=== PATIENT | female | born 1935 | race Caucasian/White ===

== ENCOUNTER 2017-01-10 13:15 | Emergency (ER) | payer MEDICARE, MEDICAID ==
[2017-01-10 13:24] VITALS: BP 147/82
--- NOTE | 2017-01-10 13:50 | ER Document Report ---
ED General - General Chief Complaint: Sore Throat Stated Complaint: COUGH Time Seen by Provider: 01/10/17 13:39 Mode of Arrival: Medic Information source: Patient, Emergency Med Personnel Notes: Patient presents emergency department via EMS from the house for complaints of sore throat and cough for the last few days. She denies fever vomiting diarrhea. She reports she has not been vomiting after cough. She reports shes been coughing up some yellow sputum. She reports her throat hurts because she has been coughing so much. Reports she has been eating and drinking without any problems. TRAVEL OUTSIDE OF THE [place] IN LAST 30 DAYS: No - HPI Onset: Other - a few days Onset/Duration: Persistent Quality of pain: Other - sore Severity: Mild Pain Level: 1 Associated symptoms: Productive cough - Related Data Allergies/Adverse Reactions: No Known Allergies Allergy (Verified 02/06/16 17:30) Past Medical History - General Information source: Patient, Emergency Med Personnel, Outside Facility Records - Social History Smoking Status: Unknown if Ever Smoked Cigarette use (# per day): No Frequency of alcohol use: None Drug Abuse: None Lives with: Penitentiary - [facility] Family History: Reviewed & Not Pertinent Patient has suicidal ideation: No Patient has homicidal ideation: No - Past Medical History Cardiac Medical History: Reports: Hx Hypercholesterolemia, Hx Hypertension Denies: Hx Coronary Artery Disease, Hx Heart Attack Pulmonary Medical History: Denies: Hx Asthma, Hx Bronchitis, Hx COPD, Hx Pneumonia Neurological Medical History: Denies: Hx Cerebrovascular Accident, Hx Seizures Endocrine Medical History: Reports: Hx Diabetes Mellitus Type 2 Musculoskeltal Medical History: Reports Hx Arthritis - Knees Past Surgical History: Reports: Hx Cardiac Catheterization, Hx Cardiac Surgery - pacemaker, Hx Hysterectomy. Denies: Hx Pacemaker - Immunizations Hx Diphtheria, Pertussis, Tetanus Vaccination: Yes Review of Systems - Review of Systems Notes: Review HPI for review of systems., All other systems negative Physical Exam - Vital signs Vitals: Temp Pulse Resp BP Pulse Ox 98.8 F 61 16 147/82 H 97 01/10/17 13:18 01/10/17 13:18 01/10/17 13:18 01/10/17 13:18 01/10/17 13:18 - Notes Notes: PHYSICAL EXAMINATION: GENERAL: Well-appearing and in no acute distress nontoxic looking HEAD: Atraumatic, normocephalic. EYES: Pupils equal round and reactive to light, extraocular movements intact, sclera anicteric, conjunctiva are normal. ENT: TM WNL, hoarse voice, nares patent, oropharynx slight erythema without exudates. Moist mucous membranes. NECK: Normal range of motion, supple without lymphadenopathy LUNGS: CTAB and equal. No wheezes rales or rhonchi. HEART: Regular rate and rhythm + murmur ABDOMEN: Soft, no tenderness. No guarding, no rebound EXTREMITIES: Normal range of motion, no pitting edema. No cyanosis. NEUROLOGICAL: Cranial nerves grossly intact. Normal sensory/motor exams. PSYCH: Normal mood, normal affect. SKIN: Warm, Dry, normal turgor for age - HEENT Head: Normocephalic Eyes: Normal Conjunctiva: Normal Extraocular movements intact: Yes Ears: Normal External canal: Normal Tympanic membrane: Normal Sinus: Normal Nasal: Normal Mouth/Lips: Normal Mucous membranes: Moist Pharynx: Normal, Erythema - No peritonsillar abscess good clear voice no trismus , opens mouth wide. No: Exudate Neck: Normal, Supple. No: Lymphadenopathy Course - Re-evaluation Re-evalutation: 01/10/17 13:50 Patient looks good,nontoxic looking, no fever speaks in clear sentences no shortness of breath denies chest pain, will do strep and chest x-ray. - Vital Signs Vital signs: Temp Pulse Resp BP Pulse Ox 98.9 F 88 16 147/82 H 94 01/10/17 17:23 01/10/17 17:23 01/10/17 17:23 01/10/17 13:18 01/10/17 17:23 Discharge - Discharge Clinical Impression: Sore throat, Cough Condition: Stable Disposition: HOME, SELF-CARE Instructions: Sore Throat (OM) Additional Instructions: *You have been evaluated for a sore throat, cough *The strep test was negative. A throat culture is pending. You will be contacted should you need antibiotics. *Warm salt water gargles and throat lozenges for comfort *Good hand washing *Follow-up with your primary care provider within 3 days *Return to ED for worsening condition change, needs Monitor your blood pressure. Your blood pressure was elevated today. This may be because you were anxious, in pain or because you need medication. It is important to follow up with your primary care provider for full evaluation. Forms: Elevated Blood Pressure Referrals: HUNTER JAMES MD [Primary Care Provider] - Follow up in 3-5 days
--- NOTE | 2017-01-10 15:11 | RADIOLOGY REPORT (SQ) ---
EXAM DESCRIPTION: SOFT TISSUE NECK COMPLETED DATE/TIME: 01/10/2017 2:41 pm REASON FOR STUDY: cough COMPARISON: None. NUMBER OF VIEWS: Two views. TECHNIQUE: AP and lateral radiographic image of the soft tissues of the neck. LIMITATIONS: None. FINDINGS: EPIGLOTTIS: Normal. Contour normal. Aryepiglottic folds normal. PREVERTEBRAL SOFT TISSUES: Normal. No soft tissue swelling. SUBGLOTTIC AREA: Normal. No narrowing. RETROPHARYNGEAL SPACE: Normal. No soft tissue masses. BONY STRUCTURES: No significant findings. Osteoporotic with degenerative disc space changes at C4-5 LUNG APICES: Normal. OTHER: Surgical clips right neck likely post endarterectomy. Left-sided pacemaker. IMPRESSION: No prevertebral soft tissue swelling. No plain film evidence of airway compromise TECHNICAL DOCUMENTATION: JOB ID: [id number] [employer]- All Rights Reserved
--- NOTE | 2017-01-10 15:12 | RADIOLOGY REPORT (SQ) ---
EXAM DESCRIPTION: CHEST PA/LAT COMPLETED DATE/TIME: 01/10/2017 2:41 pm REASON FOR STUDY: cough COMPARISON: Two-view chest 12/10/2013, 11/12/2007 EXAM PARAMETERS: NUMBER OF VIEWS: two views TECHNIQUE: Digital Frontal and Lateral radiographic views of the chest acquired. RADIATION DOSE: NA LIMITATIONS: none FINDINGS: LUNGS AND PLEURA: No opacities, masses or pneumothorax. No pleural effusion. MEDIASTINUM AND HILAR STRUCTURES: No masses or contour abnormalities. HEART AND VASCULAR STRUCTURES: Heart normal size. No evidence for failure. BONES: No acute findings. Bones osteoporotic HARDWARE: Left-sided dual lead pacemaker. Old sternotomy for CABG. OTHER: No other significant finding. IMPRESSION: NO SIGNIFICANT RADIOGRAPHIC FINDING IN THE CHEST. TECHNICAL DOCUMENTATION: JOB ID: [id number] [employer]- All Rights Reserved
== END 2017-01-10 17:26 | disposition home or self-care (01) ==
LOC: ER 13:15
DX: J02.9 Acute pharyngitis, unspecified (principal); R05 Cough; R11.10 Vomiting, unspecified
CPT/HCPCS: 70360; 71020; 87070; 87880; 99283

== ENCOUNTER 2017-06-27 07:42 | Emergency (ER) | payer MEDICARE, MEDICAID ==
--- NOTE | 2017-06-27 08:41 | ER Document Report ---
ED General - General Chief Complaint: High Blood Sugar Stated Complaint: SUGAR CONCERN Time Seen by Provider: 06/27/17 08:11 TRAVEL OUTSIDE OF THE [place] IN LAST 30 DAYS: No - HPI Patient complains to provider of: High blood sugar Notes: Patient is coming in from local nursing facility at their notes blood sugar was elevated today. Patient is diabetic on insulin. No insulin was given at the intermediate facility. Much of the HPI is obtained from EMS and intermediate reports. Upon my evaluation patient sleeping easily arousable slightly confused however very delightful to see me. Patient denies any complaints. - Related Data Allergies/Adverse Reactions: No Known Allergies Allergy (Verified 02/06/16 17:30) Past Medical History - Social History Smoking Status: Unknown if Ever Smoked Family History: Reviewed & Not Pertinent Patient has suicidal ideation: No Patient has homicidal ideation: No - Past Medical History Cardiac Medical History: Reports: Hx Hypercholesterolemia, Hx Hypertension Denies: Hx Coronary Artery Disease, Hx Heart Attack Pulmonary Medical History: Denies: Hx Asthma, Hx Bronchitis, Hx COPD, Hx Pneumonia Neurological Medical History: Denies: Hx Cerebrovascular Accident, Hx Seizures Endocrine Medical History: Reports: Hx Diabetes Mellitus Type 2 Renal/ Medical History: Denies: Hx Peritoneal Dialysis Musculoskeltal Medical History: Reports Hx Arthritis - Knees Past Surgical History: Reports: Hx Cardiac Catheterization, Hx Cardiac Surgery - pacemaker, Hx Hysterectomy. Denies: Hx Pacemaker - Immunizations Hx Diphtheria, Pertussis, Tetanus Vaccination: Yes Review of Systems - Review of Systems Notes: Dementia -: Yes ROS unobtainable due to patient's medical condition Physical Exam - Vital signs Vitals: Pulse Ox 100 06/27/17 07:47 Interpretation: Normal - General General appearance: Appears well, Alert - HEENT Head: Normocephalic, Atraumatic Eyes: Normal Pupils: PERRL - Respiratory Respiratory status: No respiratory distress Chest status: Nontender Breath sounds: Normal Chest palpation: Normal - Cardiovascular Rhythm: Regular Heart sounds: Normal auscultation Murmur: No - Abdominal Inspection: Normal Distension: No distension Bowel sounds: Normal Tenderness: Nontender Organomegaly: No organomegaly - Back Back: Normal, Nontender - Extremities General upper extremity: Normal inspection, Nontender, Normal color, Normal ROM , Normal temperature General lower extremity: Normal inspection, Nontender, Normal color, Normal ROM , Normal temperature, Normal weight bearing. No: Mejia's sign - Neurological Neuro grossly intact: Yes Cognition: Confused Sophie Coma Scale Eye Opening: Spontaneous Sophie Coma Scale Verbal: Confused Cleveland Coma Scale Motor: Obeys Commands Cleveland Coma Scale Total: 14 - Psychological Associated symptoms: Normal affect, Normal mood, Confused - Skin Skin Temperature: Warm Skin Moisture: Dry Skin Color: Normal Course - Re-evaluation Re-evalutation: 06/27/17 08:37 We will check basic metabolic panel look for signs of acidosis. If negative patient will be discharged back to intermediate. More likely elevated blood sugars due to lack of insulin. 06/27/17 09:30 Gap patient will be given her morning dose of insulin and will be discharged back to intermediate. - Vital Signs Vital signs: Temp Pulse Resp BP Pulse Ox 97.9 F 60 16 147/41 H 96 06/27/17 08:14 06/27/17 08:14 06/27/17 09:00 06/27/17 09:01 06/27/17 09:00 - Laboratory Result Diagrams: 06/27/17 08:05 Laboratory results interpreted by me: 06/27/17 06/27/17 07:53 08:05 Potassium 5.2 H Carbon Dioxide 20 L BUN 34 H Creatinine 1.70 H Est GFR ( Amer) 35 L Est GFR (Non-Af Amer) 29 L Glucose 358 H POC Glucose 380 H Discharge - Discharge Clinical Impression: Hyperglycemia Additional Instructions: Patient was evaluated for hyperglycemia. Patient was given her morning dose of insulin. Laboratory studies do not show any signs significant acidosis or significant iron gap. Please have the patient follow-up with her primary care physician for further evaluation of her diabetic control. Referrals: HUNTER JAMES MD [Primary Care Provider] - Follow up as needed
[2017-06-27 08:43] LABS: ANION GAP 15 (5-19); BLOOD UREA NITROGEN 34 mg/dL (7-20); CALCIUM 9.5 mg/dL (8.4-10.2); CARBON DIOXIDE 20 mmol/L (22-30); CHLORIDE 105 mmol/L (98-107); GLUCOSE 358 mg/dL (75-110); POTASSIUM 5.2 mmol/L (3.6-5.0)
[2017-06-27] MEDS ORDERED: INSULIN GLARGINE,HUM.REC.ANLOG 1,000 UNIT/10 ML UNIT SUBCUT ONE (09:30)
[2017-06-27 12:02] VITALS: BP 165/44
== END 2017-06-27 12:05 ==
LOC: ER 07:42
DX: E11.65 Type 2 diabetes mellitus with hyperglycemia (principal); Z79.4 Long term (current) use of insulin
CPT/HCPCS: 99285; 36415; 82962; 80048; A9270; J1815

== ENCOUNTER 2017-06-28 09:00 | Emergency (ER) | payer MEDICARE, MEDICAID ==
--- NOTE | 2017-06-28 09:13 | ER Document Report ---
ED General - General Stated Complaint: ALTERED MENTAL STATUS Time Seen by Provider: 06/28/17 09:07 TRAVEL OUTSIDE OF THE [place] IN LAST 30 DAYS: No - HPI Patient complains to provider of: Medical evaluation Notes: Patient is a resident of a local assisted living facility was seen yesterday by myself for elevated blood sugars as that she did not receive her morning dose of Lantus. Patient lab work was performed showing hyperglycemia patient was given her dose of Lantus able to have a meal and was discharged back to the snf. Patient is now presenting today for possible complaint of altered mental status. Again most of the history is from EMS. EMS states that there is concern is that the patient was unable to drink from a cup this morning however was able to have her breakfast. Patient remembers the EMS crew that picked her up yesterday. Patient also remembers myself. Patient at this time expresses no complaints denies any fevers chills nausea vomiting diarrhea. Patient is resting comfortably. No history of fever was recorded at snf. Patient apparently has received all of her medications today. - Related Data Allergies/Adverse Reactions: No Known Allergies Allergy (Verified 06/28/17 09:50) Home Medications: Current Home Medications Alendronate Sodium [Fosamax] 70 mg PO Q7D 06/28/17 [History] Diclofenac Sodium [Voltaren] 3 gm TP TID 06/28/17 [History] Escitalopram Oxalate [Lexapro 10 mg Tablet] 10 mg PO DAILY 06/28/17 [History] Metoprolol Succinate 25 mg PO DAILY 06/28/17 [History] Sodium Polystyrene Sulfon/Sorb [Kionex 15 gm/60 ml Suspension] 15 gm PO Q7D [History] Tolterodine Tartrate [Tolterodine Tartrate ER] 4 mg PO DAILY 06/28/17 [History] Past Medical History - Social History Smoking Status: Unknown if Ever Smoked Family History: Reviewed & Not Pertinent - Past Medical History Cardiac Medical History: Reports: Hx Hypercholesterolemia, Hx Hypertension Denies: Hx Coronary Artery Disease, Hx Heart Attack Pulmonary Medical History: Denies: Hx Asthma, Hx Bronchitis, Hx COPD, Hx Pneumonia Neurological Medical History: Denies: Hx Cerebrovascular Accident, Hx Seizures Endocrine Medical History: Reports: Hx Diabetes Mellitus Type 2 Renal/ Medical History: Denies: Hx Peritoneal Dialysis Musculoskeltal Medical History: Reports Hx Arthritis - Knees Past Surgical History: Reports: Hx Cardiac Catheterization, Hx Cardiac Surgery - pacemaker, Hx Hysterectomy. Denies: Hx Pacemaker - Immunizations Hx Diphtheria, Pertussis, Tetanus Vaccination: Yes Review of Systems - Review of Systems Constitutional: No symptoms reported EENT: No symptoms reported Cardiovascular: No symptoms reported Respiratory: No symptoms reported Gastrointestinal: No symptoms reported Genitourinary: No symptoms reported Female Genitourinary: No symptoms reported Musculoskeletal: No symptoms reported Skin: No symptoms reported Hematologic/Lymphatic: No symptoms reported Neurological/Psychological: No symptoms reported Physical Exam - Vital signs Vitals: Temp Pulse Resp BP Pulse Ox 97.9 F 67 19 135/91 H 99 06/28/17 09:00 06/28/17 09:00 06/28/17 09:00 06/28/17 09:00 06/28/17 09:00 Interpretation: Normal - General General appearance: Appears well, Alert - HEENT Head: Normocephalic, Atraumatic Eyes: Normal Pupils: PERRL - Respiratory Respiratory status: No respiratory distress Chest status: Nontender Breath sounds: Normal Chest palpation: Normal - Cardiovascular Rhythm: Regular Heart sounds: Normal auscultation Murmur: No - Abdominal Inspection: Normal Distension: No distension Bowel sounds: Normal Tenderness: Nontender Organomegaly: No organomegaly - Genitourinary Notes: Patient with redness and swelling of the left labia consistent with a Bartholin gland abscess. Surrounding cellulitis no signs of Patrice's gangrene or deep infection. - Back Back: Normal, Nontender - Extremities General upper extremity: Normal inspection, Nontender, Normal color, Normal ROM , Normal temperature General lower extremity: Normal inspection, Nontender, Normal color, Normal ROM , Normal temperature, Normal weight bearing. No: Mejia's sign - Neurological Neuro grossly intact: Yes Cognition: Normal Orientation: AAOx4 Lester Coma Scale Eye Opening: Spontaneous Sophie Coma Scale Verbal: Oriented Lester Coma Scale Motor: Obeys Commands Sophie Coma Scale Total: 15 Speech: Normal Motor strength normal: LUE, RUE, LLE, RLE Sensory: Normal - Psychological Associated symptoms: Normal affect, Normal mood - Skin Skin Temperature: Warm Skin Moisture: Dry Skin Color: Normal Course - Re-evaluation Re-evalutation: 06/28/17 09:12 EMS states that the certified nursing attendant is concerned that the patient is septic and otherwise seemed displeased with the treatment of the ER yesterday. Therefore we will investigate the patient further. On initial evaluation no signs of sepsis or critical pathology is suspected 06/28/17 12:16 On evaluation patient has of Bartholin abscess. This was I&D. Patient was given a oral dose of Keflex and will decide to change my mind and give the patient a dose of IV clindamycin otherwise laboratory studies show slightly elevated optic acid 2.5 with a bicarb of 18. Otherwise patient's abdomen soft nontender lungs are clear chest x-rays not show any signs of infection patient only has the abscess was a little bit of surrounding cellulitis no signs of Patrice's gangrene. I&D was successful. Patient does not look to be altered at this time. Patient will be transferred back to her place of residence. Able tolerate a meal here in the ER. Think the lactic acid and low bicarb slight dehydration and possible derangement due to renal failure - Vital Signs Vital signs: Temp Pulse Resp BP Pulse Ox 98 F 67 17 157/48 H 96 06/28/17 12:44 06/28/17 09:00 06/28/17 13:04 06/28/17 13:04 06/28/17 13:04 - Laboratory Result Diagrams: 06/28/17 09:20 06/28/17 09:20 Laboratory results interpreted by me: 06/28/17 06/28/17 06/28/17 09:20 09:20 09:20 WBC 11.4 H RBC 3.44 L Hgb 10.6 L Hct 30.9 L VBG pH VBG pCO2 Carbon Dioxide 18 L BUN 31 H Creatinine 1.65 H Est GFR ( Amer) 36 L Est GFR (Non-Af Amer) 30 L Glucose 184 H Lactic Acid 2.5 H Urine Protein Urine Glucose (UA) 06/28/17 06/28/17 09:20 09:34 WBC RBC Hgb Hct VBG pH 7.50 H VBG pCO2 28.7 L Carbon Dioxide BUN Creatinine Est GFR ( Amer) Est GFR (Non-Af Amer) Glucose Lactic Acid Urine Protein 100 H Urine Glucose (UA) 50 H Procedures - Incision and Drainage Left Labia Type: Simple Anesthetic type: 1% Lidocaine mL's of anesthetic: 2 Blade size: 11 I&D procedure: Betadine prep applied, Iodoform packing placed Incision Method: Incision made by scalpel Amount/type of drainage: 3 cc of pus Discharge - Discharge Clinical Impression: Bartholin's gland abscess Condition: Good Disposition: HOME, SELF-CARE Instructions: Clindamycin ([facility]), Post Incision and Drainage Additional Instructions: There is no signs of severe sepsis on patient's workup today. Patient does have a bartholin gland abscess which was I&D. Patient will be put on clindamycin. Patient was able to tolerate a meal here in the ER. However recommend patient follow-up with her MANAGER CRITICAL CARE or PCP for further evaluation of the abscess and approximately 24 hours. A small amount of packing was placed in the wound which can be removed in 24 hours suggest dressing changes every 24 hours at least. Please keep the wound clean and dry. Prescriptions: Clindamycin HCl [Cleocin 150 mg Capsule] 150 mg PO Q6 #40 capsule Referrals: HUNTER JAMES MD [Primary Care Provider] - Follow up in 3-5 days
--- NOTE | 2017-06-28 09:18 | EKG REPORT ---
SEVERITY:- ABNORMAL ECG - SINUS RHYTHM CAN NOT R/O A FIB, REC REPEAT EKG NONSPECIFIC INTRAVENTRICULAR CONDUCTION DELAY NONSPECIFIC ST DEPRESSION, ANTERIOR LEADS : Confirmed by: Jacob Up 28-Jun-2017 09:18:15
[2017-06-28] MEDS ORDERED: NORMAL SALINE 1000 ML 1,000 ML IV ONE (09:22)
[2017-06-28] MEDS ORDERED: CEPHALEXIN 500 MG CAPSULE PO ONE (09:34)
[2017-06-28 09:46] LABS: VENOUS BLOOD BASE EXCESS 0.2 mmol/L; VENOUS BLOOD HCO3 21.9 mmol/L (20-32); VENOUS BLOOD PCO2 28.7 mmHg (35-63); VENOUS BLOOD PH 7.5 (7.30-7.42)
[2017-06-28 09:49] LABS: ABSOLUTE BASOPHILS # (AUTO) 0.1 10^3/uL (0.0-0.2); ABSOLUTE EOSINOPHILS # (AUTO) 0.2 10^3/uL (0.0-0.6); ABSOLUTE LYMPHOCYTES (AUTO) 2.1 10^3/uL (0.5-4.7); ABSOLUTE MONOCYTES (AUTO) 0.9 10^3/uL (0.1-1.4); ABSOLUTE NEUT (AUTO) 8.2 10^3/uL (1.7-8.2); BASOPHILS % (AUTO) 0.5 % (0-2); EOSINOPHILS % (AUTO) 1.6 % (0-6); HEMATOCRIT 30.9 % (36.0-47.0); HEMOGLOBIN 10.6 g/dL (12.0-15.5); HGB HCT DIFFERENCE 0.9; LYMPHOCYTES % (AUTO) 18.2 % (13-45); MEAN CORPUSCULAR HEMOGLOBIN 30.7 pg (27.0-33.4); MEAN CORPUSCULAR HGB CONC 34.1 g/dL (32.0-36.0); MEAN CORPUSCULAR VOLUME 90 fl (80-97); MONOCYTES % (AUTO) 7.5 % (3-13); RED BLOOD COUNT 3.44 10^6/uL (3.72-5.28); RED CELL DISTRIBUTION WIDTH 12.9 % (11.5-14.0); SEGMENTED NEUTROPHILS % (AUTO) 72.2 % (42-78); WHITE BLOOD COUNT 11.4 10^3/uL (4.0-10.5)
[2017-06-28 09:52] LABS: PROTHROMBIN TIME 13.9 SEC (11.4-15.4)
[2017-06-28 10:02] LABS: ALANINE AMINOTRANSFERASE 27 U/L (9-52); ALBUMIN 3.9 g/dL (3.5-5.0); ALKALINE PHOSPHATASE 73 U/L (38-126); ANION GAP 17 (5-19); ASPARTATE AMINO TRANSFERASE 16 U/L (14-36); BILIRUBIN,DIRECT 0.4 mg/dL (0.0-0.4); BILIRUBIN,TOTAL 0.7 mg/dL (0.2-1.3); BLOOD UREA NITROGEN 31 mg/dL (7-20); CALCIUM 9.4 mg/dL (8.4-10.2); CARBON DIOXIDE 18 mmol/L (22-30); CHLORIDE 107 mmol/L (98-107); CREATININE RESULT 1.65 mg/dL (0.52-1.25); GLUCOSE 184 mg/dL (75-110); POTASSIUM 4.7 mmol/L (3.6-5.0); TOTAL PROTEIN 6.7 g/dL (6.3-8.2)
--- NOTE | 2017-06-28 10:05 | RADIOLOGY REPORT (SQ) ---
EXAM DESCRIPTION: CHEST PA/LAT COMPLETED DATE/TIME: 06/28/2017 9:57 am REASON FOR STUDY: ams? COMPARISON: 01/10/2017. EXAM PARAMETERS: NUMBER OF VIEWS: two views TECHNIQUE: Digital Frontal and Lateral radiographic views of the chest acquired. RADIATION DOSE: NA LIMITATIONS: none FINDINGS: LUNGS AND PLEURA: No opacities, masses or pneumothorax. No pleural effusion. MEDIASTINUM AND HILAR STRUCTURES: No masses or contour abnormalities. HEART AND VASCULAR STRUCTURES: Heart normal size. No evidence for failure. BONES: No acute findings. HARDWARE: Sternotomy wires. Pacemaker. OTHER: No other significant finding. IMPRESSION: NO SIGNIFICANT RADIOGRAPHIC FINDING IN THE CHEST. TECHNICAL DOCUMENTATION: JOB ID: [id number] [employer]- All Rights Reserved
[2017-06-28] MEDS ORDERED: NORMAL SALINE 500 ML IV ONE (10:07)
[2017-06-28] MEDS ORDERED: LIDOCAINE 4%/TETRACAINE 0.5%/EPI 0.18% 5 ML TOPICAL SOLN TOP ONE (10:43)
[2017-06-28 11:09] LABS: APPEARANCE,URINE CLEAR; BILIRUBIN,URINE NEGATIVE (NEGATIVE); GLUCOSE, URINE 50 mg/dL (NEGATIVE); KETONES,URINE NEGATIVE (NEGATIVE); LEUKOCYTE ESTERASE,URINE NEGATIVE (NEGATIVE); NITRITE,URINE NEGATIVE (NEGATIVE); PROTEIN,URINE 100 mg/dL (NEGATIVE); URINE SPECIFIC GRAVITY 1.015; UROBILINOGEN,URINE NEGATIVE mg/dL (<2.0)
[2017-06-28] MEDS ORDERED: CLINDAMYCIN 600 MG/D5W RTU 600 MG/50 ML RTUPB IV ONE (12:15)
[2017-06-28 13:32] VITALS: BP 157/48
== END 2017-06-28 13:35 | disposition home or self-care (01) ==
LOC: ER 09:00
PROC: 0U9L0ZZ Drainage of Vestibular Gland, Open Approach (ICD-10-PCS; principal; 2017-06-28)
DX: N75.1 Abscess of Bartholin's gland (principal); R41.82 Altered mental status, unspecified; E11.65 Type 2 diabetes mellitus with hyperglycemia; Z79.4 Long term (current) use of insulin; Z79.899 Other long term (current) drug therapy
CPT/HCPCS: 93005; 99285; 51701; 96365; 36415; 87040; 87086; 82962; 85025; 85610; 80053; 81001; 84484; 82803; 83605; 71020; 93010; 56420; A9270; J7030; J7040; J3490

== ENCOUNTER 2017-07-12 14:53 | Emergency (ER) | payer MEDICARE, MEDICAID ==
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
[2017-07-12 16:39] LABS: ABSOLUTE BASOPHILS # (AUTO) 0.1 10^3/uL (0.0-0.2); ABSOLUTE EOSINOPHILS # (AUTO) 0.3 10^3/uL (0.0-0.6); ABSOLUTE MONOCYTES (AUTO) 0.5 10^3/uL (0.1-1.4); ABSOLUTE NEUT (AUTO) 4.8 10^3/uL (1.7-8.2); BASOPHILS % (AUTO) 0.7 % (0-2); EOSINOPHILS % (AUTO) 3.3 % (0-6); HEMATOCRIT 31.1 % (36.0-47.0); HEMOGLOBIN 10.5 g/dL (12.0-15.5); HGB HCT DIFFERENCE 0.4; LYMPHOCYTES % (AUTO) 25.6 % (13-45); MEAN CORPUSCULAR HEMOGLOBIN 31.5 pg (27.0-33.4); MEAN CORPUSCULAR HGB CONC 33.8 g/dL (32.0-36.0); MEAN CORPUSCULAR VOLUME 93 fl (80-97); RED BLOOD COUNT 3.34 10^6/uL (3.72-5.28); RED CELL DISTRIBUTION WIDTH 12.7 % (11.5-14.0); SEGMENTED NEUTROPHILS % (AUTO) 63.4 % (42-78); WHITE BLOOD COUNT 7.6 10^3/uL (4.0-10.5)
[2017-07-12 16:44] LABS: ANION GAP 12 (5-19); BLOOD UREA NITROGEN 37 mg/dL (7-20); CALCIUM 9.4 mg/dL (8.4-10.2); CARBON DIOXIDE 23 mmol/L (22-30); CHLORIDE 105 mmol/L (98-107); CREATININE RESULT 1.86 mg/dL (0.52-1.25); GLUCOSE 297 mg/dL (75-110); POTASSIUM 5.6 mmol/L (3.6-5.0); SODIUM 139.5 mmol/L (137-145)
[2017-07-12 16:49] LABS: APPEARANCE,URINE SLIGHTLY-CLOUDY; BILIRUBIN,URINE NEGATIVE (NEGATIVE); GLUCOSE, URINE >=500 mg/dL (NEGATIVE); KETONES,URINE NEGATIVE (NEGATIVE); LEUKOCYTE ESTERASE,URINE SMALL (NEGATIVE); NITRITE,URINE NEGATIVE (NEGATIVE); PROTEIN,URINE 30 mg/dL (NEGATIVE); URINE SPECIFIC GRAVITY 1.012; UROBILINOGEN,URINE NEGATIVE mg/dL (<2.0)
[2017-07-12 16:59] LABS: WBC,URINE 0-1 /HPF
[2017-07-12] MEDS ORDERED: NORMAL SALINE 500 ML IV ONE (17:18)
[2017-07-12] MEDS ORDERED: SODIUM POLYSTYRENE SULFONATE 15 GM/60 ML PO ONE (18:51)
--- NOTE | 2017-07-12 19:05 | EKG REPORT ---
SEVERITY:- ABNORMAL ECG - ATRIAL-VENTRICULAR DUAL-PACED COMPLEXES : Confirmed by: Flavio Carpenter MD 12-Jul-2017 19:03:49
[2017-07-12 22:15] VITALS: BP 146/79
== END 2017-07-12 22:25 ==
LOC: ER 14:53
DX: E87.5 Hyperkalemia (principal); E86.0 Dehydration; E11.9 Type 2 diabetes mellitus without complications
CPT/HCPCS: 93005; 99285; 96360; 96361; 36415; 87086; 82962; 85025; 80048; 81001; 93010; J7040

== ENCOUNTER 2017-07-18 11:41 | Emergency (ER) | payer MEDICARE, MEDICAID ==
[2017-07-18 12:53] LABS: ABSOLUTE EOSINOPHILS # (AUTO) 0.2 10^3/uL (0.0-0.6); ABSOLUTE LYMPHOCYTES (AUTO) 1.4 10^3/uL (0.5-4.7); ABSOLUTE MONOCYTES (AUTO) 0.5 10^3/uL (0.1-1.4); BASOPHILS % (AUTO) 0.6 % (0-2); EOSINOPHILS % (AUTO) 2.7 % (0-6); HEMATOCRIT 32.9 % (36.0-47.0); HEMOGLOBIN 11.2 g/dL (12.0-15.5); HGB HCT DIFFERENCE 0.7; LYMPHOCYTES % (AUTO) 19.4 % (13-45); MEAN CORPUSCULAR HEMOGLOBIN 31.9 pg (27.0-33.4); MEAN CORPUSCULAR VOLUME 94 fl (80-97); MONOCYTES % (AUTO) 7.3 % (3-13); RED BLOOD COUNT 3.51 10^6/uL (3.72-5.28); RED CELL DISTRIBUTION WIDTH 12.9 % (11.5-14.0); WHITE BLOOD COUNT 7.1 10^3/uL (4.0-10.5)
[2017-07-18 12:59] LABS: ALANINE AMINOTRANSFERASE 33 U/L (9-52); ALKALINE PHOSPHATASE 61 U/L (38-126); ANION GAP 12 (5-19); ASPARTATE AMINO TRANSFERASE 20 U/L (14-36); BILIRUBIN,DIRECT 0.4 mg/dL (0.0-0.4); BILIRUBIN,TOTAL 0.5 mg/dL (0.2-1.3); BLOOD UREA NITROGEN 32 mg/dL (7-20); CALCIUM 9.4 mg/dL (8.4-10.2); CARBON DIOXIDE 22 mmol/L (22-30); CHLORIDE 103 mmol/L (98-107); CREATININE RESULT 1.71 mg/dL (0.52-1.25); POTASSIUM 5.3 mmol/L (3.6-5.0); SODIUM 136.7 mmol/L (137-145); TOTAL PROTEIN 7.3 g/dL (6.3-8.2)
[2017-07-18 13:08] LABS: GLUCOSE 445 mg/dL (75-110)
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
--- NOTE | 2017-07-18 13:34 | RADIOLOGY REPORT (SQ) ---
EXAM DESCRIPTION: CT CERVICAL SPINE WITHOUT COMPLETED DATE/TIME: 07/18/2017 1:24 pm REASON FOR STUDY: Fall and hit head, minor neck pain COMPARISON: 12/10/2013. TECHNIQUE: Axial images acquired through the cervical spine without intravenous contrast. Images re viewed with lung, soft tissue and bone windows. Reconstructed coronal and sagittal MPR images review ed. Images stored on PACS. All CT scanners at this facility use dose modulation, iterative reconstruction, and/or weight based d osing when appropriate to reduce radiation dose to as low as reasonably achievable (ALARA). [facility]: Dose Right [facility]: CareDose [facility]: Dose Right [facility]: Teradose 4D [facility]: [employer] RADIATION DOSE: mGy. LIMITATIONS: None. FINDINGS: ALIGNMENT: Anatomic. MINERALIZATION: Normal. VERTEBRAL BODIES: No fractures or dislocation. DISCS: Multilevel disc space narrowing with osteophytes. FACETS, LATERAL MASSES, POSTERIOR ELEMENTS: Facet arthropathy. No fractures. No dislocation. No ac amanda findings. HARDWARE: None in the spine. VISUALIZED RIBS: No fractures. LUNG APICES AND SOFT TISSUES: No significant or acute findings. OTHER: No other significant finding. IMPRESSION: CHRONIC DEGENERATIVE CHANGES. NO ACUTE FINDINGS. TECHNICAL DOCUMENTATION: JOB ID: [id number] Quality ID # [id number]: Final reports with documentation of one or more dose reduction techniques (e.g., Au tomated exposure control, adjustment of the mA and/or kV according to patient size, use of iterative reconstruction technique) 2010 [email or web address]- All Rights Reserved
--- NOTE | 2017-07-18 14:06 | RADIOLOGY REPORT (SQ) ---
EXAM DESCRIPTION: CHEST PA/LAT COMPLETED DATE/TIME: 07/18/2017 1:31 pm REASON FOR STUDY: Fall with pain in the left anterior chest area COMPARISON: 06/28/2017. EXAM PARAMETERS: NUMBER OF VIEWS: two views TECHNIQUE: Digital Frontal and Lateral radiographic views of the chest acquired. RADIATION DOSE: NA LIMITATIONS: none FINDINGS: LUNGS AND PLEURA: No opacities, masses or pneumothorax. No pleural effusion. MEDIASTINUM AND HILAR STRUCTURES: No masses or contour abnormalities. HEART AND VASCULAR STRUCTURES: Heart normal size. No evidence for failure. BONES: No acute findings. HARDWARE: Sternotomy wires and pacemaker. OTHER: No other significant finding. IMPRESSION: NO SIGNIFICANT RADIOGRAPHIC FINDING IN THE CHEST. TECHNICAL DOCUMENTATION: JOB ID: [id number] [employer]- All Rights Reserved
[2017-07-18 14:55] LABS: APPEARANCE,URINE SLIGHTLY-CLOUDY; BILIRUBIN,URINE NEGATIVE (NEGATIVE); GLUCOSE, URINE >=500 mg/dL (NEGATIVE); KETONES,URINE NEGATIVE (NEGATIVE); LEUKOCYTE ESTERASE,URINE NEGATIVE (NEGATIVE); NITRITE,URINE NEGATIVE (NEGATIVE); PROTEIN,URINE 30 mg/dL (NEGATIVE); URINE SPECIFIC GRAVITY 1.015; UROBILINOGEN,URINE NEGATIVE mg/dL (<2.0)
[2017-07-18] MEDS ORDERED: INSULIN REG, HUMAN 100 UNIT/ML 3 ML VIAL (PYX) SUBCUT ONE (15:32)
--- NOTE | 2017-07-18 15:36 | ER Document Report ---
ED Fall - General Chief Complaint: Fall Stated Complaint: FALL,HIGH BLOOD SUGAR Time Seen by Provider: 07/18/17 12:26 Notes: Patient is a resident at [facility]. She reportedly fell. Patient says that she lost her footing and slipped. Says that she hit the back of her head, although she says it does not hurt at this time. No report of any loss of consciousness and no report of any mental status or neurological changes. Patient denies any neck pain. Moves all 4 extremities without difficulty and does not appear to have any neurologic deficits. Patient points to the left lower anterior ribs between the left breast and sternum as where she does have some pain, although it does not seem to hurt for me to press on that entire area. Denies any abdominal pain. Denies shortness of breath. Denies any extremity pains, in particular neither hip is painful. TRAVEL OUTSIDE OF THE [place] IN LAST 30 DAYS: No - Related data Allergies/Adverse Reactions: No Known Allergies Allergy (Verified 07/18/17 12:30) Home Medications: Current Home Medications Citalopram Hydrobromide [Citalopram HBr] 20 mg PO DAILY 07/18/17 [History] Lorazepam 1 mg PO BID 07/18/17 [History] Past Medical History - Social History Smoking Status: Never Smoker Chew tobacco use (# tins/day): No Drug Abuse: None Family History: Reviewed & Not Pertinent Patient has suicidal ideation: No Patient has homicidal ideation: No - Past Medical History Cardiac Medical History: Reports: Hx Coronary Artery Disease, Hx Hypercholesterolemia, Hx Hypertension, Other - Patient has a pacemaker in the left upper chest Endocrine Medical History: Reports: Hx Diabetes Mellitus Type 1 - On Lantus, not sure if she got her dose this morning., Hx Diabetes Mellitus Type 2 Musculoskeltal Medical History: Reports Hx Arthritis - Knees Psychiatric Medical History: Reports: Hx Dementia Past Surgical History: Reports: Hx Cardiac Catheterization, Hx Cardiac Surgery - pacemaker, Hx Hysterectomy, Hx Pacemaker - Immunizations Hx Diphtheria, Pertussis, Tetanus Vaccination: Yes Review of Systems - Review of Systems Notes: REVIEW OF SYSTEMS: CONSTITUTIONAL : Denies fever. EENT: Denies eye, ear, nose or mouth or throat pain or other symptoms. CARDIOVASCULAR: See HPI. RESPIRATORY: Denies cough, chest congestion, or shortness of breath. GASTROINTESTINAL: Denies abdominal pain or nausea, vomiting, or diarrhea. GENITOURINARY: Denies difficulty or painful urinating, urinary frequency, blood in urine. MUSCULOSKELETAL: Denies back or neck pain. Denies joint pain or swelling. SKIN: Denies rash or skin lesions. NEUROLOGICAL: Denies LOC or altered mental status. Denies headache. Denies sensory loss or motor deficits. ALL OTHER SYSTEMS REVIEWED AND NEGATIVE. Physical Exam - Vital signs Vitals: Temp Pulse Resp BP Pulse Ox 98.5 F 65 18 162/44 H 99 07/18/17 11:46 07/18/17 11:46 07/18/17 11:46 07/18/17 11:46 07/18/17 11:46 Interpretation: Normal, Hypertensive - Mild - Notes Notes: PHYSICAL EXAMINATION: GENERAL: Well-appearing, in no acute distress. HEAD: Atraumatic, normocephalic. No cranial hematomas noted. No tender spots on the scalp either. EYES: Pupils equal round and reactive to light, extraocular movements intact. ENT: oropharynx clear without exudates. Moist mucous membranes. 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 Family came to visit patient and confirm that it has been there for decades. NECK: Normal range of motion, supple. LUNGS: Breath sounds clear and equal bilaterally. Patient has tenderness where the lower left anterior ribs attached to the sternum. However, no subcutaneous air felt. No tenderness in the left upper quadrant of the abdomen. Pacemaker upper left anterior chest. HEART: Regular rate and rhythm without murmurs. ABDOMEN: Soft, nontender. No guarding or rebound. No tenderness in the left upper quadrant, over the spleen. BACK: No tenderness throughout entire back. EXTREMITIES: Normal range of motion without pain. Both legs have full range of motion at the hip joints and with no pain present. NEUROLOGICAL: Normal speech. Normal sensory, motor, and reflex exams. Awake, alert. PSYCH: Normal mood, normal affect. SKIN: Warm, dry, no rashes. Course - Re-evaluation Re-evalutation: 07/18/17 16:06 Patient's blood sugar was noted to be in the 400s and she was given a sliding scale dosage of regular insulin of 10 units subcutaneous. Otherwise, all labs and all imaging studies were essentially normal. Vital signs remained normal, stable. - Vital Signs Vital signs: Temp Pulse Resp BP Pulse Ox 98.5 F 65 18 162/44 H 99 07/18/17 15:50 07/18/17 11:46 07/18/17 15:50 07/18/17 11:46 07/18/17 15:50 - Laboratory Result Diagrams: 07/18/17 11:55 07/18/17 11:55 Laboratory results interpreted by me: 07/18/17 07/18/17 07/18/17 11:55 11:55 14:15 RBC 3.51 L Hgb 11.2 L Hct 32.9 L Sodium 136.7 L Potassium 5.3 H BUN 32 H Creatinine 1.71 H Est GFR ( Amer) 35 L Est GFR (Non-Af Amer) 29 L Glucose 445 H* Urine Protein 30 H Urine Glucose (UA) >=500 H - Diagnostic Test Radiology reviewed: Image reviewed, Reports reviewed - CT scan of the brain and C-spine show no acute abnormalities. Degenerative changes. Radiology results interpreted by me: 07/18/17 15:35 X-ray of the chest shows no acute process. Discharge - Discharge Clinical Impression: Fall Condition: Stable Additional Instructions: CHEST PAIN OF UNCLEAR CAUSE: The exact cause of your chest pain isn't clear. Fortunately, there is no evidence of a dangerous medical condition. Further testing may be required to find the source of the pain. Most often, we find that this pain is coming from the chest wall -- the muscles or rib joints in the chest. But chest pain can come from the lung and lung lining, the esophagus, the heart valves or heart lining, and even the stomach or gallbladder. Rest. Eat lightly until the pain is gone. We may prescribe medicine for pain and inflammation. You should call the physician immediately if the pain radiates to the shoulder, jaw or arms; if you start to run a fever or develop a cough; or if you develop shortness of breath, or other new or alarming symptoms. NORMAL EXAM AND WORKUP: At this time, your examination and workup show no significant abnormality. No significant abnormal physical findings were noted. All laboratory, EKG, and imaging (x-ray, CT scans, ultrasound) studies that were ordered show no significant abnormality. Although your examination and all studies that were ordered showed no significant abnormal finding, there are no examinations and no studies that are 100% accurate. There is always the possibility that some abnormality could exist and not be detected with physical examination or within the limits and capabilities of laboratory and other studies. You should return or follow up as you were instructed on your visit today for further evaluation if your symptoms do not resolve. CHEST WALL PAIN: Your chest pain may be coming from the chest wall. This is often caused by straining the muscles or joints in the chest during physical activity, direct trauma, coughing, or vigorous vomiting. Persons with arthritis are especially prone to this type of pain, due to inflammation of the cartilage joints near the breast bone. Occasionally, no cause can be found. Rest from strenuous physical activity. This kind of chest pain is usually made worse by movement of the chest. Depending on the symptoms, we may prescribe medicine for pain, muscle relaxation, and antiinflammatory effects. If the pain is new, and seems to be due to muscle strain, cold packs can help. Otherwise, apply gentle warmth to the painful area for 15 minutes every hour or two. You should call contact the doctor immediately if things change. Further evaluation is needed if you develop a fever or cough, if the nature of the pain changes, or if you become short of breath. HYPERGLYCEMIA (HIGH BLOOD SUGAR): You have an abnormally high blood sugar. Not all high blood sugar requires long-term treatment. High blood sugar can be due to medications, , or the stress of illness. (These cases are "borderline diabetes.") If the doctor feels your high blood sugar might resolve with time, you may not require treatment now. It's very important that you follow through, to see if the blood sugar returns to normal levels. Uncontrolled high blood sugar leads to early heart disease, strokes, nerve damage, eye damage, and kidney damage. Call the physician if there is faintness, excess sleepiness, or very rapid breathing. DIABETES: You have an abnormally high blood sugar, suspicious for diabetes. Not all high blood sugar requires long-term treatment. High blood sugar can be due to medications, , or the stress of illness. (These cases are "borderline diabetes.") If the doctor feels your high blood sugar might get better with time, you may not require treatment now. It's very important that you follow through. Uncontrolled high blood sugar leads to early heart disease, strokes, nerve damage, eye damage, and kidney damage. All diabetics should follow a diet designed to control the blood sugar. Overweight diabetics should exercise regularly and lose weight. If this is not sufficient to control the blood sugar, pills or insulin shots are necessary. Younger people who develop diabetes almost always require insulin daily. Home testing of blood sugars or urine sugar is required. Diabetic teaching is available to help you figure insulin doses and monitor the blood sugar. Call the physician if there is faintness, excess sleepiness, or very rapid breathing. If hypoglycemia (LOW blood sugar) develops, symptoms are shakiness, weakness, sweating, and confusion. In this case, you should eat or drink something with sugar at once. INSULIN: Insulin is a natural hormone that lowers blood sugar. Normal blood sugar prevents complications of diabetes. For most diabetics, insulin is the best way to treat the illness. Be sure you know how to measure the insulin correctly. Insulin is measured in "units." There are three types of insulin: N (NPH or long acting), R (regular or short acting), and L (Lente or very long acting). Be sure you are using the right amount of each type. Insulin must be injected into the fat. You can use the abdomen, upper arms , and thighs. Select a different injection site every time. Wipe the site with alcohol before injecting. When first starting insulin, some adjusting of the insulin dose is necessary. Keep a record of each insulin dose and time of injection, and of the blood sugar and the time you test it. Sometimes insulin can make the blood sugar too low. If you become dizzy, sweaty, shaky, or confused, you may be having a hypoglycemic episode. Immediately use juice or some other sweet food. Call the doctor if the symptoms don't go away. USE OF ACETAMINOPHEN (Tylenol): Acetaminophen may be taken for pain relief or fever control. It's much safer than aspirin, offering a wider range of "safe" dosages. It is safe during . Some brand names are Tylenol, Panadol, Datril, Anacin 3, Tempra, and Liquiprin. Acetaminophen can be repeated every four hours. The following are maximum recommended dosages: WEIGHT Dose Drops Elixir Chewable( 80mg) (LBS.) drprs=droppers tsp=teaspoon >89 pounds or adults 650 mg to 900 mg Acetaminophen can be repeated every four hours. Maximum dose not to exceed 4000 mg a day. These maximum recommended dosages are slightly higher than the dosages written on the product container, but these dosages are very safe and below the toxic dosage for acetaminophen. FOLLOW-UP CARE: If you have been referred to a physician for follow-up care, call the physician s office for an appointment as you were instructed or within the next two days. If you experience worsening or a significant change in your symptoms, notify the physician immediately or return to the Emergency Department at any time for re-evaluation. Referrals: HUNTER JAMES MD [Primary Care Provider] - Follow up as needed
[2017-07-18 17:16] VITALS: BP 160/88
--- NOTE | 2017-07-18 23:09 | EKG REPORT ---
SEVERITY:- ABNORMAL ECG - ATRIAL-VENTRICULAR DUAL-PACED RHYTHM : Confirmed by: Jacob Up 18-Jul-2017 23:08:30
== END 2017-07-18 16:55 | disposition home or self-care (01) ==
LOC: ER 11:41
DX: R07.81 Pleurodynia (principal); W01.0XXA Fall on same level from slipping, tripping and stumbling without subsequent striking against object, initial encounter; I25.10 Atherosclerotic heart disease of native coronary artery without angina pectoris; I10 Essential (primary) hypertension; E11.9 Type 2 diabetes mellitus without complications; Z95.0 Presence of cardiac pacemaker
CPT/HCPCS: 93005; 99285; 36415; 82962; 85025; 80053; 81001; 71020; 70450; 72125; 93010; A9270; J1815

== ENCOUNTER 2017-07-19 07:50 | Emergency (ER) | payer MEDICARE, MEDICAID ==
--- NOTE | 2017-07-19 08:17 | ER Document Report ---
ED General - General Stated Complaint: BLOOD SUGAR PROBLEMS Time Seen by Provider: 07/19/17 08:03 Mode of Arrival: Medic Information source: Patient, Transfer Record Notes: Patient was sent here from also [place] due to an elevated blood sugar. Staff members state that she normally takes Lantus 50 units subcutaneously every day and the dose is normally given an 8 in the morning. Staff members did not give her any of her usual dose of insulin. Staff also states that her blood pressure was elevated this morning but states that it could be artificially elevated due to her movement of her upper extremity. Patient was not given her blood pressure medication today either. Provider spoke with nurse and also house he states that patient does not have a sliding scale to cover for elevations and they have not been able to get up with her primary care provider. Patient was seen here yesterday after a fall in the emergency department. Patient does complain of left lateral hip pain as well. TRAVEL OUTSIDE OF THE [place] IN LAST 30 DAYS: No - HPI Onset: This morning Onset/Duration: Gradual Quality of pain: Achy Pain Level: 3 Associated symptoms: Other - left hip pain. denies: Chest pain, Nonproductive cough, Productive cough, Fever, Nausea, Vomiting Exacerbated by: Movement Relieved by: Denies Similar symptoms previously: No Recently seen / treated by doctor: Yes - Related Data Allergies/Adverse Reactions: No Known Allergies Allergy (Verified 07/18/17 12:30) Past Medical History - General Information source: Patient, Emergency Med Personnel, Outside Facility Records - Social History Smoking Status: Never Smoker Frequency of alcohol use: None Drug Abuse: None Lives with: Long Term Family History: Reviewed & Not Pertinent - Past Medical History Cardiac Medical History: Reports: Hx Coronary Artery Disease, Hx Hypercholesterolemia, Hx Hypertension Denies: Hx Heart Attack Pulmonary Medical History: Denies: Hx Asthma, Hx Bronchitis, Hx COPD, Hx Pneumonia Neurological Medical History: Denies: Hx Cerebrovascular Accident, Hx Seizures Endocrine Medical History: Reports: Hx Diabetes Mellitus Type 1 - On Lantus, not sure if she got her dose this morning., Hx Diabetes Mellitus Type 2 Renal/ Medical History: Denies: Hx Peritoneal Dialysis Musculoskeltal Medical History: Reports Hx Arthritis - Knees Psychiatric Medical History: Reports: Hx Dementia Past Surgical History: Reports: Hx Cardiac Catheterization, Hx Cardiac Surgery - pacemaker, Hx Hysterectomy, Hx Pacemaker - Immunizations Hx Diphtheria, Pertussis, Tetanus Vaccination: Yes Review of Systems - Review of Systems Constitutional: No symptoms reported. denies: Fever, Recent illness EENT: No symptoms reported Cardiovascular: No symptoms reported. denies: Chest pain, Syncope Respiratory: No symptoms reported. denies: Cough, Short of breath Gastrointestinal: No symptoms reported. denies: Abdominal pain, Vomiting Genitourinary: No symptoms reported Female Genitourinary: No symptoms reported Musculoskeletal: Joint pain - left hip. denies: Back pain Skin: No symptoms reported Hematologic/Lymphatic: No symptoms reported Neurological/Psychological: No symptoms reported Physical Exam - Vital signs Vitals: Temp Pulse Resp BP Pulse Ox 97.4 F 60 18 167/69 H 95 07/19/17 07:50 07/19/17 07:50 07/19/17 07:50 07/19/17 07:50 07/19/17 07:50 - General General appearance: Appears well, Alert In distress: None - HEENT Head: Normocephalic, Atraumatic Eyes: Normal Nasal: Normal Mouth/Lips: Normal Mucous membranes: Dry Neck: Normal. No: Lymphadenopathy - Respiratory Respiratory status: No respiratory distress Chest status: Nontender Breath sounds: Normal Chest palpation: Normal - Cardiovascular Rhythm: Regular Heart sounds: S1 appreciated, S2 appreciated Murmur: Yes - Abdominal Inspection: Obese Distension: No distension Bowel sounds: Normal Tenderness: Nontender Organomegaly: No organomegaly - Back Back: Normal - Extremities General upper extremity: Normal inspection, Normal strength General lower extremity: Tender - left lateral hip tenderness, Normal color. No : Edema - Neurological Neuro grossly intact: Yes Ranger Coma Scale Eye Opening: Spontaneous Ranger Coma Scale Verbal: Oriented Ranger Coma Scale Motor: Obeys Commands Sophie Coma Scale Total: 15 - Psychological Associated symptoms: Normal affect, Normal mood - Skin Skin Temperature: Warm Skin Moisture: Dry Skin Color: Normal Course - Re-evaluation Re-evalutation: 07/19/17 08:[address] Ocampo who recommends only covering patient with sliding scale insulin and advises [facility] that they should be dosing her Lantus at night 07/19/17 11:[address] Ocampo who advises having patient take her Lantus at bedtime instead of in the morning and consulting with her primary doctor for further evaluation. - Vital Signs Vital signs: Temp Pulse Resp BP Pulse Ox 97.4 F 60 17 129/43 H 96 07/19/17 07:50 07/19/17 07:50 07/19/17 12:01 07/19/17 12:01 07/19/17 12:01 - Laboratory Result Diagrams: 07/19/17 08:23 07/19/17 08:23 Laboratory results interpreted by me: 07/19/17 07/19/17 07/19/17 08:23 08:23 10:22 WBC 11.8 H RBC 3.41 L Hgb 10.6 L Hct 31.9 L Seg Neutrophils % 84.2 H Lymphocytes % 9.6 L Absolute Neutrophils 9.9 H Potassium 5.2 H Carbon Dioxide 21 L BUN 32 H Creatinine 1.49 H Est GFR ( Amer) 41 L Est GFR (Non-Af Amer) 34 L Glucose 428 H* POC Glucose 406 H* Urine Protein Urine Glucose (UA) Urine Ketones 07/19/17 07/19/17 10:55 13:23 WBC RBC Hgb Hct Seg Neutrophils % Lymphocytes % Absolute Neutrophils Potassium Carbon Dioxide BUN Creatinine Est GFR ( Amer) Est GFR (Non-Af Amer) Glucose POC Glucose 295 H Urine Protein 100 H Urine Glucose (UA) >=500 H Urine Ketones TRACE H Labs- Entire Visit 07/19/17 07/19/17 07/19/17 08:23 08:23 08:23 WBC 11.8 H RBC 3.41 L Hgb 10.6 L Hct 31.9 L MCV 93 MCH 31.1 MCHC 33.3 RDW 12.8 Plt Count 234 Seg Neutrophils % 84.2 H Lymphocytes % 9.6 L Monocytes % 5.4 Eosinophils % 0.0 Basophils % 0.8 Absolute Neutrophils 9.9 H Absolute Lymphocytes 1.1 Absolute Monocytes 0.6 Absolute Eosinophils 0.0 Absolute Basophils 0.1 VBG pH 7.35 VBG pCO2 47.4 VBG HCO3 25.7 VBG Base Excess -0.7 Sodium 140.0 Potassium 5.2 H Chloride 103 Carbon Dioxide 21 L Anion Gap 16 BUN 32 H Creatinine 1.49 H Est GFR ( Amer) 41 L Est GFR (Non-Af Amer) 34 L Glucose 428 H* POC Glucose Calcium 9.5 Total Bilirubin 0.6 Direct Bilirubin 0.3 Neonat Total Bilirubin Not Reportable Neonat Direct Bilirubin Not Reportable Neonat Indirect Bili Not Reportable AST 21 ALT 29 Alkaline Phosphatase 69 Total Protein 7.3 Albumin 4.1 Urine Color Urine Appearance Urine pH Ur Specific [place] Urine Protein Urine Glucose (UA) Urine Ketones Urine Blood Urine Nitrite Urine Bilirubin Urine Urobilinogen Ur Leukocyte Esterase Urine WBC (Auto) Urine RBC (Auto) Squamous Epi Cells Auto Urine Mucus (Auto) Urine Ascorbic Acid 07/19/17 07/19/17 10:22 10:55 WBC RBC Hgb Hct MCV MCH MCHC RDW Plt Count Seg Neutrophils % Lymphocytes % Monocytes % Eosinophils % Basophils % Absolute Neutrophils Absolute Lymphocytes Absolute Monocytes Absolute Eosinophils Absolute Basophils VBG pH VBG pCO2 VBG HCO3 VBG Base Excess Sodium Potassium Chloride Carbon Dioxide Anion Gap BUN Creatinine Est GFR ( Amer) Est GFR (Non-Af Amer) Glucose POC Glucose 406 H* Calcium Total Bilirubin Direct Bilirubin Neonat Total Bilirubin Neonat Direct Bilirubin Neonat Indirect Bili AST ALT Alkaline Phosphatase Total Protein Albumin Urine Color YELLOW Urine Appearance CLEAR Urine pH 6.0 Ur Specific [place] 1.020 Urine Protein 100 H Urine Glucose (UA) >=500 H Urine Ketones TRACE H Urine Blood NEGATIVE Urine Nitrite NEGATIVE Urine Bilirubin NEGATIVE Urine Urobilinogen NEGATIVE Ur Leukocyte Esterase NEGATIVE Urine WBC (Auto) 1 Urine RBC (Auto) 1 Squamous Epi Cells Auto <1 Urine Mucus (Auto) RARE Urine Ascorbic Acid NEGATIVE 07/19/17 12:01 Reviewed laboratory studies from yesterday - Diagnostic Test Radiology reviewed: Reports reviewed Discharge - Discharge Clinical Impression: Hyperkalemia, Left hip pain, Hx of essential hypertension Uncontrolled diabetes mellitus Qualifiers: Diabetes mellitus type: other specified (including MIKALA) Diabetes mellitus complication status: with hyperglycemia Diabetes mellitus residential insulin use : with chief executive officer use Qualified Code(s): E13.65 - Other specified diabetes mellitus with hyperglycemia Condition: Stable Disposition: HOME, SELF-CARE Instructions: Acetaminophen, High Blood Pressure, Requiring Treatment ([facility]), Hyperglycemia ([facility]), Sprain ([facility]) Additional Instructions: Return immediately for any new or worsening symptoms Followup with your primary care provider, call to make a followup appointment Your potassium level was mildly elevated today. Your primary doctor can have your electrolytes rechecked in 2 days. Follow-up with orthopedic doctor for any continued hip pain You should take your Lantus at bedtime instead of in the morning to see if you get any better management of your blood sugars during the day Prescriptions: Walker [Folding Walker] 1 each MC ASDIR PRN #1 each PRN Reason: Forms: Elevated Blood Pressure Referrals: HUNTER JAMES MD [Primary Care Provider] - 07/19/17
[2017-07-19 08:46] LABS: ABSOLUTE BASOPHILS # (AUTO) 0.1 10^3/uL (0.0-0.2); ABSOLUTE LYMPHOCYTES (AUTO) 1.1 10^3/uL (0.5-4.7); ABSOLUTE MONOCYTES (AUTO) 0.6 10^3/uL (0.1-1.4); ABSOLUTE NEUT (AUTO) 9.9 10^3/uL (1.7-8.2); BASOPHILS % (AUTO) 0.8 % (0-2); HEMATOCRIT 31.9 % (36.0-47.0); HEMOGLOBIN 10.6 g/dL (12.0-15.5); HGB HCT DIFFERENCE -0.1; LYMPHOCYTES % (AUTO) 9.6 % (13-45); MEAN CORPUSCULAR HEMOGLOBIN 31.1 pg (27.0-33.4); MEAN CORPUSCULAR HGB CONC 33.3 g/dL (32.0-36.0); MEAN CORPUSCULAR VOLUME 93 fl (80-97); MONOCYTES % (AUTO) 5.4 % (3-13); RED BLOOD COUNT 3.41 10^6/uL (3.72-5.28); RED CELL DISTRIBUTION WIDTH 12.8 % (11.5-14.0); SEGMENTED NEUTROPHILS % (AUTO) 84.2 % (42-78); WHITE BLOOD COUNT 11.8 10^3/uL (4.0-10.5)
[2017-07-19 08:54] LABS: VENOUS BLOOD BASE EXCESS -0.7 mmol/L; VENOUS BLOOD HCO3 25.7 mmol/L (20-32); VENOUS BLOOD PCO2 47.4 mmHg (35-63); VENOUS BLOOD PH 7.35 (7.30-7.42)
[2017-07-19] MEDS ORDERED: INSULIN REG, HUMAN 100 UNIT/ML 3 ML VIAL (PYX) SUBCUT ONE ×2 (09:06→13:51)
[2017-07-19 09:12] LABS: ALANINE AMINOTRANSFERASE 29 U/L (9-52); ALBUMIN 4.1 g/dL (3.5-5.0); ALKALINE PHOSPHATASE 69 U/L (38-126); ANION GAP 16 (5-19); ASPARTATE AMINO TRANSFERASE 21 U/L (14-36); BILIRUBIN,DIRECT 0.3 mg/dL (0.0-0.4); BILIRUBIN,TOTAL 0.6 mg/dL (0.2-1.3); BLOOD UREA NITROGEN 32 mg/dL (7-20); CALCIUM 9.5 mg/dL (8.4-10.2); CARBON DIOXIDE 21 mmol/L (22-30); CHLORIDE 103 mmol/L (98-107); CREATININE RESULT 1.49 mg/dL (0.52-1.25); POTASSIUM 5.2 mmol/L (3.6-5.0); TOTAL PROTEIN 7.3 g/dL (6.3-8.2)
--- NOTE | 2017-07-19 09:14 | RADIOLOGY REPORT (SQ) ---
EXAM DESCRIPTION: HIP LEFT AP/LATERAL COMPLETED DATE/TIME: 07/19/2017 9:07 am REASON FOR STUDY: L hip pain, fall yesterday COMPARISON: None. NUMBER OF VIEWS: Two views. TECHNIQUE: AP pelvis and additional frog-leg view of the left hip. LIMITATIONS: None. FINDINGS: MINERALIZATION: Normal. LEFT HIP: No fracture or dislocation. No worrisome bone lesions. RIGHT HIP: No fracture or dislocation. No worrisome bone lesions. PUBIS AND ISCHIUM: No fracture. PELVIS: No fracture. SACRUM: No fracture or dislocation. No worrisome bone lesions. LOWER LUMBAR SPINE: Degenerative changes. SOFT TISSUES: No findings. OTHER: No other significant finding. IMPRESSION: No acute fractures. TECHNICAL DOCUMENTATION: JOB ID: [id number] [employer]- All Rights Reserved
[2017-07-19 09:22] LABS: GLUCOSE 428 mg/dL (75-110)
[2017-07-19] MEDS ORDERED: METOPROLOL SUCCINATE 25 MG TAB.SR.24H PO ONE (09:42)
[2017-07-19] MEDS ORDERED: NORMAL SALINE 1000 ML 500 ML IV ONE (09:43)
[2017-07-19] MEDS ORDERED: ACETAMINOPHEN 325 MG TABLET PO ONE (09:45)
[2017-07-19 11:22] LABS: APPEARANCE,URINE CLEAR; BILIRUBIN,URINE NEGATIVE (NEGATIVE); GLUCOSE, URINE >=500 mg/dL (NEGATIVE); KETONES,URINE TRACE mg/dL (NEGATIVE); LEUKOCYTE ESTERASE,URINE NEGATIVE (NEGATIVE); NITRITE,URINE NEGATIVE (NEGATIVE); PROTEIN,URINE 100 mg/dL (NEGATIVE); UROBILINOGEN,URINE NEGATIVE mg/dL (<2.0)
[2017-07-19 12:39] VITALS: BP 129/43
== END 2017-07-19 14:41 | disposition home or self-care (01) ==
LOC: ER 07:50
DX: E13.65 Other specified diabetes mellitus with hyperglycemia (principal); Z79.4 Long term (current) use of insulin; T38.3X6A Underdosing of insulin and oral hypoglycemic [antidiabetic] drugs, initial encounter; Y92.129 Unspecified place in nursing home as the place of occurrence of the external cause; Z91.14 Patient's other noncompliance with medication regimen; M25.552 Pain in left hip; E87.5 Hyperkalemia; I25.10 Atherosclerotic heart disease of native coronary artery without angina pectoris; I10 Essential (primary) hypertension; Z95.0 Presence of cardiac pacemaker
CPT/HCPCS: 99285; 96360; 36415; 82962; 85025; 80053; 81001; 82803; 73502; A9270 ×3; J7030; J1815

== ENCOUNTER 2017-07-20 09:46 | Emergency (ER) | payer MEDICARE, MEDICAID ==
[2017-07-20] MEDS ORDERED: INSULIN REG, HUMAN 100 UNIT/ML 3 ML VIAL (PYX) SUBCUT ONE (09:54)
--- NOTE | 2017-07-20 10:11 | ER Document Report ---
ED General - General Stated Complaint: HIGH BLOOD SUGAR Time Seen by Provider: 07/20/17 09:53 Mode of Arrival: Medic Information source: Patient, Emergency Med Personnel, [facility] Records, Outside Facility Records Cannot obtain history due to: Dementia Notes: 82 yr old female hx of diabetes who has been seen here 3 times now this week for hyperglycemia presents with complaints of high blood sugar. Pts med rec was not sent wit hthe patient and nurse at facility is refusing to send information but it is noted by provider yesterday that lantus was given in the mornings and she moved it to night time ot improve the patients blood sugar control. Pt was ot given med last night per car efaciality but was given this morning. pt denies any complaints TRAVEL OUTSIDE OF THE [place] IN LAST 30 DAYS: No - HPI Onset: Just prior to arrival Onset/Duration: Sudden Quality of pain: No pain Severity: None Pain Level: Denies Associated symptoms: Other Exacerbated by: Denies Relieved by: Denies Similar symptoms previously: Yes Recently seen / treated by doctor: Yes - Related Data Allergies/Adverse Reactions: No Known Allergies Allergy (Verified 07/18/17 12:30) Past Medical History - Social History Smoking Status: Never Smoker Cigarette use (# per day): No Chew tobacco use (# tins/day): No Smoking Education Provided: No Family History: Reviewed & Not Pertinent - Past Medical History Cardiac Medical History: Reports: Hx Coronary Artery Disease, Hx Hypercholesterolemia, Hx Hypertension Denies: Hx Heart Attack Pulmonary Medical History: Denies: Hx Asthma, Hx Bronchitis, Hx COPD, Hx Pneumonia Neurological Medical History: Denies: Hx Cerebrovascular Accident, Hx Seizures Endocrine Medical History: Reports: Hx Diabetes Mellitus Type 1 - On Lantus, not sure if she got her dose this morning., Hx Diabetes Mellitus Type 2 Renal/ Medical History: Denies: Hx Peritoneal Dialysis Musculoskeltal Medical History: Reports Hx Arthritis - Knees Psychiatric Medical History: Reports: Hx Dementia Past Surgical History: Reports: Hx Cardiac Catheterization, Hx Cardiac Surgery - pacemaker, Hx Hysterectomy, Hx Pacemaker - Immunizations Hx Diphtheria, Pertussis, Tetanus Vaccination: Yes Review of Systems - Review of Systems Notes: REVIEW OF SYSTEMS: CONSTITUTIONAL : Denies fever, chills, or sweats. Denies recent illness. EENT: Denies eye, ear, throat, or mouth pain or symptoms. Denies nasal or sinus congestion or discharge. Denies throat, tongue, or mouth swelling or difficulty swallowing. CARDIOVASCULAR: Denies chest pain. Denies palpitations or racing or irregular heart beat. Denies ankle edema. RESPIRATORY: Denies cough, cold, or chest congestion. Denies shortness of breath, difficulty breathing, or wheezing. GASTROINTESTINAL: Denies abdominal pain or distention. Denies nausea, vomiting , or diarrhea. Denies blood in vomitus, stools, or per rectum. Denies black, tarry stools. Denies constipation. GENITOURINARY: Denies difficulty urinating, painful urination, burning, frequency, blood in urine, or discharge. FEMALE GENITOURINARY: Denies vaginal bleeding, heavy or abnormal periods, irregular periods. Denies vaginal discharge or odor. MUSCULOSKELETAL: Denies back or neck pain or stiffness. Denies joint pain or swelling. SKIN: Denies rash, lesions or sores. HEMATOLOGIC : Denies easy bruising or bleeding. LYMPHATIC: Denies swollen, enlarged glands. NEUROLOGICAL: Denies confusion or altered mental status. Denies passing out or loss of consciousness. Denies dizziness or lightheadedness. Denies headache. Denies weakness or paralysis or loss of use of either side. Denies problems with gait or speech. Denies sensory loss, numbness, or tingling. Denies seizures. PSYCHIATRIC: Denies anxiety or stress. Denies depression, suicidal ideation, or homicidal ideation. ALL OTHER SYSTEMS REVIEWED AND NEGATIVE. PHYSICAL EXAMINATION: GENERAL: Well-appearing, well-nourished and in no acute distress. HEAD: Atraumatic, normocephalic. EYES: Pupils equal round and reactive to light, extraocular movements intact, conjunctiva are normal. ENT: Nares patent, oropharynx clear without exudates. Moist mucous membranes. NECK: Normal range of motion, supple without lymphadenopathy LUNGS: Breath sounds clear to auscultation bilaterally and equal. No wheezes rales or rhonchi. HEART: Regular rate and rhythm without murmurs ABDOMEN: Soft, nontender, nondistended abdomen. No guarding, no rebound. No masses appreciated. 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 Normal speech, normal gait. Normal sensory, motor exams PSYCH: Normal mood, normal affect. SKIN: Warm, Dry, normal turgor, no rashes or lesions noted. Dictation was performed using [employer] voice recognition software Physical Exam - Vital signs Vitals: Temp Pulse Resp BP Pulse Ox 98.0 F 59 L 15 156/47 H 98 07/20/17 10:52 07/20/17 10:52 07/20/17 10:52 07/20/17 10:52 07/20/17 10:52 Course - Re-evaluation Re-evalutation: 07/20/17 10:11 Nursing staff is trying to get med rec from care facility since I cannot determine if this is a medication issue 07/20/17 11:[address] Macdonald, he will take care of her diabetes , he requests hga1c , noted to be 10.0 , he does not patient has been agitated i nthe past, currently on ativan and very calm and pleasant 07/20/17 12:45 pts blood sugar has improved will [facility] facility for further care After performing a Medical Screening Examination, I estimate there is LOW risk for ACUTE CORONARY SYNDROME, PULMONARY EMBOLI, RESPIRATORY FAILURE, SEPSIS OR MENINGITIS, thus I consider the discharge disposition reasonable. I have reevaluated this patient multiple times and no significant life threatening changes are noted. The patient and I have discussed the diagnosis and risks, and we agree with discharging home with close follow-up. We also discussed returning to the Emergency Department immediately if new or worsening symptoms occur. We have discussed the symptoms which are most concerning (e.g., changing or worsening pain, trouble swallowing or breathing, neck stiffness, fever) that necessitate immediate return. - Vital Signs Vital signs: Temp Pulse Resp BP Pulse Ox 98.0 F 59 L 15 156/47 H 98 07/20/17 10:52 07/20/17 10:52 07/20/17 10:52 07/20/17 10:52 07/20/17 10:52 - Laboratory Result Diagrams: 07/20/17 10:50 07/20/17 10:50 Laboratory results interpreted by me: 07/20/17 07/20/17 07/20/17 10:31 10:50 10:50 WBC 10.6 H RBC 3.40 L Hgb 10.7 L Hct 32.1 L Potassium 5.1 H BUN 34 H Creatinine 1.59 H Est GFR ( Amer) 38 L Est GFR (Non-Af Amer) 31 L Glucose 483 H* POC Glucose 509 H* Hemoglobin A1c % Urine Protein Urine Glucose (UA) Urine Ketones 07/20/17 07/20/17 10:50 11:28 WBC RBC Hgb Hct Potassium BUN Creatinine Est GFR ( Amer) Est GFR (Non-Af Amer) Glucose POC Glucose Hemoglobin A1c % 10.0 H Urine Protein 100 H Urine Glucose (UA) >=500 H Urine Ketones TRACE H Critical Care Note - Critical Care Note Total time excluding time spent on procedures (mins): 34 Comments: 34 minutes of critical care time spent in direct contact evaluating and reevaluating the patient, treating symptoms, reviewing labs and studies and speaking with family and consultants excluding any procedures Discharge - Discharge Clinical Impression: Hx of essential hypertension, Hyperglycemia Condition: Stable Disposition: HOME, SELF-CARE Instructions: Hyperglycemia ([facility]) Referrals: HUNTER MACDONALD MD [Primary Care Provider] - Follow up tomorrow
[2017-07-20] MEDS: NORMAL SALINE 1000 ML 1,000 ML IV PRN ×2 (10:36→10:37)
[2017-07-20 11:03] LABS: ABSOLUTE LYMPHOCYTES (AUTO) 1.5 10^3/uL (0.5-4.7); BASOPHILS % (AUTO) 0.3 % (0-2); EOSINOPHILS % (AUTO) 0.3 % (0-6); HEMATOCRIT 32.1 % (36.0-47.0); HEMOGLOBIN 10.7 g/dL (12.0-15.5); LYMPHOCYTES % (AUTO) 14.5 % (13-45); MEAN CORPUSCULAR HEMOGLOBIN 31.6 pg (27.0-33.4); MEAN CORPUSCULAR HGB CONC 33.5 g/dL (32.0-36.0); MEAN CORPUSCULAR VOLUME 94 fl (80-97); MONOCYTES % (AUTO) 9.3 % (3-13); RED CELL DISTRIBUTION WIDTH 13.1 % (11.5-14.0); SEGMENTED NEUTROPHILS % (AUTO) 75.6 % (42-78); WHITE BLOOD COUNT 10.6 10^3/uL (4.0-10.5)
[2017-07-20 11:06] LABS: VENOUS BLOOD BASE EXCESS -0.2 mmol/L; VENOUS BLOOD PCO2 42.9 mmHg (35-63); VENOUS BLOOD PH 7.38 (7.30-7.42)
[2017-07-20 11:22] LABS: ALANINE AMINOTRANSFERASE 32 U/L (9-52); ALKALINE PHOSPHATASE 63 U/L (38-126); ANION GAP 13 (5-19); ASPARTATE AMINO TRANSFERASE 19 U/L (14-36); BILIRUBIN,DIRECT 0.4 mg/dL (0.0-0.4); BILIRUBIN,TOTAL 0.7 mg/dL (0.2-1.3); BLOOD UREA NITROGEN 34 mg/dL (7-20); CALCIUM 9.2 mg/dL (8.4-10.2); CARBON DIOXIDE 24 mmol/L (22-30); CHLORIDE 101 mmol/L (98-107); CREATININE RESULT 1.59 mg/dL (0.52-1.25); POTASSIUM 5.1 mmol/L (3.6-5.0); SODIUM 138.3 mmol/L (137-145)
[2017-07-20 11:35] LABS: GLUCOSE 483 mg/dL (75-110)
[2017-07-20 11:54] LABS: APPEARANCE,URINE CLEAR; BILIRUBIN,URINE NEGATIVE (NEGATIVE); GLUCOSE, URINE >=500 mg/dL (NEGATIVE); KETONES,URINE TRACE mg/dL (NEGATIVE); LEUKOCYTE ESTERASE,URINE NEGATIVE (NEGATIVE); NITRITE,URINE NEGATIVE (NEGATIVE); PROTEIN,URINE 100 mg/dL (NEGATIVE); UROBILINOGEN,URINE NEGATIVE mg/dL (<2.0)
[2017-07-20 13:21] VITALS: BP 190/56
== END 2017-07-20 13:31 | disposition home or self-care (01) ==
LOC: ER 09:46
DX: E10.65 Type 1 diabetes mellitus with hyperglycemia (principal); I10 Essential (primary) hypertension; I25.10 Atherosclerotic heart disease of native coronary artery without angina pectoris; E78.00 Pure hypercholesterolemia, unspecified; Z90.710 Acquired absence of both cervix and uterus; Z79.4 Long term (current) use of insulin; Z95.0 Presence of cardiac pacemaker
CPT/HCPCS: 99291; 36415; 82962; 85025; 80053; 81001; 83036; 82803; A9270; J7030; J1815